=== PATIENT | female | born 1945 | race Caucasian/White ===

== ENCOUNTER 2025-02-23 12:52 | Outpatient (CLI) | payer MEDICARE, OTHER ==
--- NOTE | 2025-02-23 14:54 | RADIOLOGY REPORT ---
CLINICAL INFORMATION: 79 years old, Female; LUMBAGO WITH SCIATICA, LEFT SIDE. TECHNIQUE: Multisequence multiplanar MRI images of the lumbar spine were obtained without contrast. COMPARISON: None INTERPRETATION: Motion artifact limits evaluation. Mild retrolisthesis of L2 on L3. Mild anterolisthesis of L4 on L5. Vertebral body heights are maintained. Posterior elements are intact. There are Modic type 2 endplate changes at L2-L3. Heterogeneous marrow signal throughout the visualized osseous structures, likely due to red marrow hyperplasia and interspersed areas of focal fatty marrow. Probable intraosseous hemangiomas in the L3 and L4 vertebral bodies. No focal suspicious marrow signal abnormality. Visualized spinal cord and cauda equina are within normal limits. The conus medullaris is appropriate in signal at the L1 level. Texr-jy-dzilrpvj fatty atrophy in the paraspinal musculature of the lower lumbosacral spine. L1-L2: Disc desiccation. Mild diffuse disc bulge causing zcww-[id number]-[id number] spinal canal stenosis and partial effacement of the lateral recesses. Facet and uncinate hypertrophy with kvem-xq-qvraldls bilateral neural foraminal stenoses. L2-L3: Disc desiccation. Moderate to severe disc space narrowing. Diffuse disc bulge causes moderate spinal canal stenosis and effacement of the lateral recesses. Facet hypertrophy with moderate bilateral neural foraminal stenoses. Mild bilateral facet joint effusions. L3-L4: Disc desiccation with axse-wd-hobkrzzw disc space narrowing and diffuse disc bulge with concomitant facet hypertrophy and infolding of the ligamentum flavum contributing to moderate to severe spinal canal stenosis and effacement of the lateral recesses. Facet hypertrophy with lwxm-ms-ercebzfv right and moderate to severe left neural foraminal stenoses. Moderate bilateral facet joint effusions, left greater than right. L4-L5: Disc desiccation with sawr-zw-htrthntm disc space narrowing and diffuse disc bulge with concomitant facet hypertrophy and infolding of the ligamentum flavum contributing to severe spinal canal stenosis and effacement of the lateral recesses. Facet hypertrophy with wqjg-gg-efqcjjbe bilateral neural foraminal stenoses. L5-S1: Disc desiccation with diffuse disc bulge mildly indenting the ventral aspect of the thecal sac. No significant spinal canal stenosis. Facet hypertrophy with mild left neural foraminal stenosis. IMPRESSION: 1. Degenerative disc disease and facet disease in the lumbar spine with associated spinal canal, subarticular, and neural foraminal stenoses as detailed above. 2. Mild retrolisthesis of L2 on L3 and mild anterolisthesis of L4 on L5. 3. Motion limited study. 4. Additional findings as described above.
== END 2025-02-23 23:59 | disposition home or self-care (01) ==
LOC: MRI02 12:52
PROVIDERS: ATTEND Physician Assistant
DX: M51.17 Intervertebral disc disorders with radiculopathy, lumbosacral region (principal); G89.29 Other chronic pain; M48.07 Spinal stenosis, lumbosacral region; M47.27 Other spondylosis with radiculopathy, lumbosacral region
CPT/HCPCS: 72148